=== PATIENT | male | born 1970 | race Caucasian/White ===

== ENCOUNTER 2022-04-28 05:53 | Day surgery (SDC) | payer OTHER ==
[~2022-04-28] VITALS: Ht 182.9 cm; Wt 109.9 kg
[~2022-04-28 05:53] MED LIST: ASPI81CH PO; BUSP10; DEPO-TESTO200 MG/1 M; DYAZIDE 37.5-21 EACH PO; Desowen60 GM; LISI20 PO; TADA10TA PO; TESTOSTERONE 1% TOP; VITAMIN D310 MC4 PO
--- NOTE | 2022-04-28 08:51 | NUR ---
PT TOLERATING PO FLUIDS, UMBILICAL INCISION X 1, DRESSING CDI, ABLE TO MOVE HIMSELF IN BED, SHARP CONSTANT PAIN 3/10 AT INCISION,
--- NOTE | 2022-04-28 09:30 | NUR ---
Patient up to Ambulate independently. Gait steady. Discharge instructions reviewed with patient. Patient verbalizes understanding. Copy given to patient to take home. Dressing to procedure site clean, dry, intact with no visible drainage, swelling, erythema or bruising noted. Discharged via wheelchair to private car for ride home WITH . ALL BELONGINGS TO PT.
[2022-05-24] MEDS ORDERED: ANDROGEL (11:06)
== END 2022-04-28 22:38 | disposition home or self-care (01) ==
LOC: ORSCMMR 05:53 → ORD 07:30 → ORSCMMR 22:38
PROVIDERS: Surgery
PROC: 0WQF0ZZ Repair Abdominal Wall, Open Approach (ICD-10-PCS; principal; 2022-04-28 07:30)
DX: K42.0 Umbilical hernia with obstruction, without gangrene (principal); I10 Essential (primary) hypertension; G47.33 Obstructive sleep apnea (adult) (pediatric); J45.909 Unspecified asthma, uncomplicated; E11.9 Type 2 diabetes mellitus without complications; Z79.899 Other long term (current) drug therapy
CPT/HCPCS: 82947; A9270; J0690; J1100; J1885; J2250; J2405; J2704; J2710; J3010; J7120

== ENCOUNTER 2022-05-27 08:55 | Day surgery (SDC) | payer OTHER ==
[~2022-05-27] VITALS: Ht 180.3 cm; Wt 108.6 kg
[~2022-05-27 08:55] MED LIST changes: +ANDROGEL
== END 2022-05-27 12:17 | disposition home or self-care (01) ==
LOC: ORSCSDS 08:55
PROVIDERS: Orthopaedic Surgery
PROC: 01S40ZZ Reposition Ulnar Nerve, Open Approach (ICD-10-PCS; principal; 2022-05-27 10:30)
DX: G56.21 Lesion of ulnar nerve, right upper limb (principal); I10 Essential (primary) hypertension; E11.9 Type 2 diabetes mellitus without complications; G47.33 Obstructive sleep apnea (adult) (pediatric); Z79.899 Other long term (current) drug therapy; J45.909 Unspecified asthma, uncomplicated; Z79.82 Long term (current) use of aspirin
CPT/HCPCS: 82947; J0690; J1100; J1885; J2250; J2405; J2704; J2795; J3010; J7120

== ENCOUNTER 2022-10-28 08:24 | Day surgery (SDC) | payer OTHER ==
[~2022-10-28] VITALS: Ht 180.3 cm; Wt 108.9 kg
[2022-10-28] MEDS ORDERED: METF500C PO (09:16)
[2022-10-28] MEDS ORDERED: OMEP20ER PO (09:17)
[2022-10-28] MEDS ORDERED: ATOR10 PO (09:17)
[2022-10-28] MEDS ORDERED: ALBU90OI (09:18)
[2022-10-28] MEDS ORDERED: Ventolin5 MG/1 ML INH (09:20)
[2022-10-28] MEDS ORDERED: PREG25 PO (09:21)
[2022-10-28] MEDS ORDERED: FLUTICASONE-SA1 EAC1 INH (09:22)
--- NOTE | 2022-10-28 11:52 | NUR ---
10/28/22 1152 Claudine Aguila PILLOW UNDER HEAD, PILLOW UNDER KNEES, RIGHT ARM SECURED ON PADDED ARM BOARD.
--- NOTE | 2022-10-28 14:53 | NUR ---
10/28/22 [facility] GIVEN FOR PAIN 03/01. CONSULTING PSYCHIATRIST VERIFIED ORDER WITH DR RENDON PRIOR TO ADMIN.
== END 2022-10-28 15:20 | disposition home or self-care (01) ==
LOC: ORSCSDS 08:24
PROVIDERS: Orthopaedic Surgery
PROC: 01X40Z4 Transfer Ulnar Nerve to Ulnar Nerve, Open Approach (ICD-10-PCS; principal; 2022-10-28 10:00)
PROC: 01N50ZZ Release Median Nerve, Open Approach (ICD-10-PCS; principal; 2022-10-28 10:00)
DX: G56.02 Carpal tunnel syndrome, left upper limb (principal); G56.22 Lesion of ulnar nerve, left upper limb; E11.9 Type 2 diabetes mellitus without complications; E78.5 Hyperlipidemia, unspecified; K21.9 Gastro-esophageal reflux disease without esophagitis; Z79.899 Other long term (current) drug therapy; Z79.82 Long term (current) use of aspirin; Z79.84 Long term (current) use of oral hypoglycemic drugs; J45.909 Unspecified asthma, uncomplicated; E66.9 Obesity, unspecified; Z68.33 Body mass index [BMI] 33.0-33.9, adult
CPT/HCPCS: 82947; A9270; J0171; J0690; J2250; J2405; J2704; J2765; J2795; J3010; J7120

== ENCOUNTER 2023-01-20 08:44 | Day surgery (SDC) | payer OTHER ==
[~2023-01-20] VITALS: Ht 180.3 cm; Wt 110.3 kg
[~2023-01-20 08:44] MED LIST changes: +ALBU90OI; +ATOR10 PO; +FLUTICASONE-SA1 EAC1 INH; +METF500C PO; +OMEP20ER PO; +PREG25 PO; +Ventolin5 MG/1 ML INH
--- NOTE | 2023-01-20 11:50 | NUR ---
01/20/23 1150 Claude Rivero PT REPORTED 3/10 PAIN UPON DISCHARGE, BUT DESCRIBED PAIN TOLERABLE.
== END 2023-01-20 11:27 | disposition home or self-care (01) ==
LOC: ORSCSDS 08:44
PROVIDERS: Orthopaedic Surgery
PROC: 01N50ZZ Release Median Nerve, Open Approach (ICD-10-PCS; principal; 2023-01-20 10:00)
DX: G56.01 Carpal tunnel syndrome, right upper limb (principal); F41.9 Anxiety disorder, unspecified; F32.A Depression, unspecified; E11.9 Type 2 diabetes mellitus without complications; I10 Essential (primary) hypertension; J45.909 Unspecified asthma, uncomplicated; E78.5 Hyperlipidemia, unspecified; K21.9 Gastro-esophageal reflux disease without esophagitis; G47.33 Obstructive sleep apnea (adult) (pediatric); Z79.82 Long term (current) use of aspirin; Z79.84 Long term (current) use of oral hypoglycemic drugs; Z79.899 Other long term (current) drug therapy
CPT/HCPCS: 82947; J0690; J2250; J2704; J3010

== ENCOUNTER 2023-11-14 19:03 | Emergency (ER) | payer OTHER ==
[~2023-11-14] VITALS: Ht 180.3 cm; Wt 103.4 kg
[2023-11-14 20:45] VITALS: BP 102/60
== END 2023-11-14 21:45 | disposition home or self-care (01) ==
LOC: ER 19:03
DX: M79.652 Pain in left thigh (principal); Z79.84 Long term (current) use of oral hypoglycemic drugs; Z79.82 Long term (current) use of aspirin; Z79.899 Other long term (current) drug therapy; W01.0XXA Fall on same level from slipping, tripping and stumbling without subsequent striking against object, initial encounter
CPT/HCPCS: 73502; 73552; 96372; 99283-25; J1885

== ENCOUNTER 2024-11-04 11:26 | Day surgery (SDC) | payer OTHER ==
[~2024-11-04] VITALS: Ht 182.9 cm; Wt 94.8 kg
[~2024-11-04 11:26] MED LIST changes: +Lidocaine HCl 2% 10 ML SDA ONE; +NS 500 ML IV ONE
[2024-11-04] MEDS ORDERED: CeFAZolin Sodium 2,000 MG VIAL ONE (11:46)
[2024-11-04] MEDS ORDERED: LISI5 PO (11:53)
[2024-11-04] MEDS ORDERED: NS 500 ML IV ONE (12:00)
--- NOTE | 2024-11-04 12:14 | NUR ---
11/04/24 1214 Jaqueline Ross 1212: TIMEOUT FOR PRE-OP INJECTION BY DR SHARMA 1213: INJECTION BY DR SHARMA OF 10 CC OF MIX OF 9 CC LIDOCAINE 1% WITH EPI 1:100,000 AND 1 CC OF SODIUM BICARBONATE
[2024-11-04] MEDS ORDERED: FentaNYL Citrate 50 MCG/ML 2 ML Injection ONE (13:10)
[2024-11-04] MEDS ORDERED: propofoL 20 ML IV ONE (13:10)
[2024-11-04 14:18] VITALS: BP 124/84
== END 2024-11-04 14:16 | disposition home or self-care (01) ==
LOC: ORSCSDS 11:26
PROVIDERS: Orthopaedic Surgery
PROC: 0LN70ZZ Release Right Hand Tendon, Open Approach (ICD-10-PCS; principal; 2024-11-04 13:45)
PROC: 0LN50ZZ Release Right Lower Arm and Wrist Tendon, Open Approach (ICD-10-PCS; principal; 2024-11-04 13:45)
PROC: 0JBJ0ZZ Excision of Right Hand Subcutaneous Tissue and Fascia, Open Approach (ICD-10-PCS; 2024-11-04 13:45)
DX: R22.31 Localized swelling, mass and lump, right upper limb (principal); M65.4 Radial styloid tenosynovitis [de Quervain]; I10 Essential (primary) hypertension; G47.33 Obstructive sleep apnea (adult) (pediatric); K21.9 Gastro-esophageal reflux disease without esophagitis; E11.9 Type 2 diabetes mellitus without complications; Z79.82 Long term (current) use of aspirin; Z79.899 Other long term (current) drug therapy
CPT/HCPCS: 82947; 88304; J0690; J2003; J2704; J3010; J7040